=== PATIENT | male | born 1970 | race Caucasian/White ===

== ENCOUNTER 2016-10-22 21:13 | Inpatient (IN) | payer MEDICARE, MEDICAID ==
[~2016-10-22] VITALS: Ht 170.2 cm; Wt 63.2 kg
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
--- NOTE | ~2016-10-22 | HP ---
PATIENT'S NAME: SYLVESTER MAY [facility] AGE: 46 Y [address] ROOM: [place] [id number] LOCATION: GICU ADMIT DATE: 10/22/2016 History & Physical DISCHARGE DATE: FAMILY PHYSICIAN: PHYSICIAN, UNKNOWN ATTENDING PHYSICIAN: Raissa Gonzalez DATE OF SERVICE: 10/22/2016 PATIENT IDENTIFICATION: Sylvester May is a 46-year-old male. PRESENTING COMPLAINT: Fall. HISTORY OF PRESENT ILLNESS: The patient is not certain how he ended up on the ground, but he believed he passed out and fell from the porch. He does not know how long he was out for. His neighbor called EMS, who evaluated him in the field. He was reluctant to go to the emergency room initially. He eventually was seen in the ER and had a head CT scan. The CT scan showed intracranial hemorrhage. The patient was, therefore, referred to me for evaluation and treatment. PAST MEDICAL HISTORY: Significant for blindness in both eyes. The patient states he had trauma to the left eye, and they were not able to save his vision. 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 PAST MEDICAL HISTORY: Other past medical history: 1. Coronary artery disease with myocardial infarction. 2. Diverticulosis. 3. Dental abscesses. 4. Posttraumatic stress disorder. 5. Bronchitis. CURRENT MEDICATIONS: 1. Alphagan. 2. Omeprazole. 3. Plavix. 4. Prozac. 5. Clonazepam. 6. Crestor. 7. Gabapentin. 8. Latanoprost. PATIENT'S NAME: SYLVESTER MAY [facility] AGE: 46 Y [address] ROOM: [address] [place] [id number] LOCATION: GICU ADMIT DATE: 10/22/2016 History & Physical DISCHARGE DATE: FAMILY PHYSICIAN: PHYSICIAN, UNKNOWN ATTENDING PHYSICIAN: Raissa Gonzalez 9. Lorazepam. ALLERGIES: DEPAKOTE. REVIEW OF SYSTEMS: A 10-point review of systems was carried out. The only abnormal findings are described in the history of present illness. FAMILY HISTORY: No family history relevant to this present problem. SOCIAL HISTORY: The patient lives alone. PHYSICAL EXAMINATION: GENERAL: The patient is a middle-aged gentleman, who is alert and cooperative through the examination. VITAL SIGNS: Blood pressure 136/80, pulse rate 64. NEUROLOGIC: The patient is alert. He follows commands. He is oriented to place. He is off by a few dates, but he is oriented to person. Cranial nerves: He is blind in both eyes. He has no vision at all on the left, and he is able to see shadows with the right. Motor examination: The patient has normal strength in all of the major muscle groups of his upper and lower extremities bilaterally. Gait not tested. CARDIOVASCULAR SYSTEM: Heart sounds present. RESPIRATORY SYSTEM: The patient is not short of breath at bedside. EXTREMITIES: No cyanosis or clubbing. HEENT: Head: There is a large bruise to the patient's left eye area. Ears: No evidence of trauma. REVIEW OF IMAGING STUDIES: The patient has had a head CT scan. The CT scan shows significant maxillofacial injury. There may be a fracture involving the posterior wall of the left frontal sinus resulting in pneumocephalus. There may also be a fracture involving the left superior orbital wall. There is a large pneumocephalus. There is a small amount of subarachnoid hemorrhage. The pneumocephalus results in mild mass effect upon the left frontal lobe. Cervical spine CT: There is a fracture through the transverse process of C7 on the right side. The fracture does extend into the lateral margin of the foramen transversarium. LABORATORY DATA: Laboratory investigations: Sodium 140, potassium 3.9, glucose 103, urea 7, PATIENT'S NAME: SYLVESTER MAY [facility] AGE: 46 Y [address] ROOM: [address] [address] LOCATION: [facility] ADMIT DATE: 10/22/2016 History & Physical DISCHARGE DATE: FAMILY PHYSICIAN: PHYSICIAN, UNKNOWN ATTENDING PHYSICIAN: Raissa Gonzalez creatinine 0.96. White count 24.2, hemoglobin 14.9, platelets 274. IMPRESSION: A 46-year-old male with a history of fall. Imaging studies show nondisplaced superior orbital fractures with a fracture through the superior ethmoid. There is also a small amount of traumatic subarachnoid hemorrhage. There is a fracture through the transverse process of C7 on the right side. MEDICAL DECISION MAKING: The patient is being admitted for observation. For now, there are no indications for neurosurgical intervention. The patient to be seen by ENT in the morning regarding his facial fractures. Further management will depend on the ENT recommendations. MD MICHAEL HORNEO/betsyl /[id number] CC: Shane Somers MD D: [id number] T: [id number] HISTORY & PHYSICAL
--- NOTE | ~2016-10-22 | DS ---
PATIENT'S NAME: KELLE MAY [facility] AGE: 46 Y [address] [id number] [address] LOCATION: [facility] ADMIT DATE: 10/22/2016 Discharge Summary DISCHARGE DATE: 10/25/2016 FAMILY PHYSICIAN: Shane Somers MD ATTENDING PHYSICIAN: Raissa Gonzalez REASON FOR ADMISSION: The patient had a fall from his porch on October 22, 2016. As a result of the fall, he sustained facial fractures resulting in pneumocephalus. He also had a small amount of traumatic subarachnoid hemorrhage. Other injuries included a fracture through the transverse process of the C7 vertebra on the right-hand side. TREATMENT RENDERED: The patient was admitted for observation. An ENT consult was obtained for his facial fractures. The ENT physicians felt that there was no reason for surgical treatment of the fracture, and the fractures are expected to heal on their own. His pneumocephalus also decreased on subsequent CT scanning. The patient is mostly blind for a long time, but from this injury, he had some bruising around the left eye. The bruising also improved during his stay in the hospital. By the 25 of October, the patient was well enough to be discharged home. He was released on that day with arrangements to follow up if he developed any increasing headache or decreased level of consciousness. No surgery was performed for the patient. FINAL DIAGNOSES: 1. Fall with facial fractures. 2. Traumatic subarachnoid hemorrhage, nonoperative. 3. Cervical spine fracture, stable. RAISSA GONZALEZ MD CNO/modl /[id number] d: 10/31/16 0129 t: 11/04/16 1124, DISCHARGE SUMMARY
[2016-10-23] MEDS ORDERED: KLONOPIN2 MG PO (11:18)
[2016-10-23] MEDS ORDERED: OMEPRAZOLE40 MG PO (11:18)
[2016-10-23] MEDS ORDERED: PROZAC40 MG PO (11:19)
[2016-10-23] MEDS ORDERED: ATIVAN2 MG PO (11:19)
[2016-10-23] MEDS ORDERED: PLAVIX75 MG PO (11:19)
[2016-10-23] MEDS ORDERED: ALPHAGAN P5 ML OPHTH (11:20)
[2016-10-23] MEDS ORDERED: PRED FORTE 1%5 ML OPHTH (11:21)
[2016-10-23] MEDS ORDERED: XALATAN2.5 ML OPHTH (11:21)
[2016-10-23] MEDS ORDERED: CRESTOR10 MG PO (11:22)
[2016-10-23] MEDS ORDERED: NEURONTIN800 MG PO (11:22)
[2016-10-25] MEDS ORDERED: TYLENOL325 MG PO (15:57)
== END 2016-10-25 17:00 | disposition disaster alternative care site (69) | DRG 83 ==
LOC: GICU 22:16
PROVIDERS: ADMIT Neurological Surgery
DX: S06.6X9A Traumatic subarachnoid hemorrhage with loss of consciousness of unspecified duration, initial encounter (principal); S12.600A Unspecified displaced fracture of seventh cervical vertebra, initial encounter for closed fracture; G93.89 Other specified disorders of brain; S02.19XA Other fracture of base of skull, initial encounter for closed fracture; W18.30XA Fall on same level, unspecified, initial encounter; H54.8 Legal blindness, as defined in USA; Q13.81 Rieger anomaly; I25.10 Atherosclerotic heart disease of native coronary artery without angina pectoris; F43.10 Post-traumatic stress disorder, unspecified; I25.2 Old myocardial infarction; F41.9 Anxiety disorder, unspecified; Z86.73 Personal history of transient ischemic attack (TIA), and cerebral infarction without residual deficits; Y92.018 Other place in single-family (private) house as the place of occurrence of the external cause
CPT/HCPCS: J2270; J2405; J2550; J7030